=== PATIENT | female | born 1955 | race Caucasian/White ===

== ENCOUNTER 2016-07-09 11:55 | Emergency (ER) | payer OTHER ==
[~2016-07-09] VITALS: Ht 162.6 cm; Wt 126.9 kg
[2016-07-09] MEDS ORDERED: NAPROXEN500 MG PO (13:28)
[2016-07-09] MEDS ORDERED: FLEXERIL10 MG PO (13:28)
[2016-07-09 13:56] VITALS: BP 143/93
== END 2016-07-09 13:57 | disposition home or self-care (01) ==
LOC: EME 11:55 → EXP 11:55
DX: S20.221A Contusion of right back wall of thorax, initial encounter (principal); W01.198A Fall on same level from slipping, tripping and stumbling with subsequent striking against other object, initial encounter; Y92.233 Cafeteria of hospital as the place of occurrence of the external cause; Y99.0 Civilian activity done for income or pay
CPT/HCPCS: 71101; 72070; 99281; 99284; J1885

== ENCOUNTER → 2017-10-17 | Outpatient (CLI) | payer OTHER ==
[~2017-10-17] MED LIST: FLEXERIL10 MG PO; NAPROXEN500 MG PO
== END | disposition home or self-care (01) ==
LOC: RAD 09:27
DX: M16.11 Unilateral primary osteoarthritis, right hip (principal); M47.896 Other spondylosis, lumbar region
CPT/HCPCS: 73502

== ENCOUNTER → 2017-10-27 | Outpatient (CLI) | payer OTHER | END | disposition home or self-care (01) | LOC: RAD 11:11 | DX: M25.561 Pain in right knee (principal); Z96.651 Presence of right artificial knee joint | CPT/HCPCS: 73562; 73564 ==

== ENCOUNTER → 2017-11-17 | Outpatient (CLI) | payer OTHER | END | disposition home or self-care (01) | LOC: NUC 08:30 | DX: M19.012 Primary osteoarthritis, left shoulder (principal); M19.011 Primary osteoarthritis, right shoulder; M19.072 Primary osteoarthritis, left ankle and foot; M19.071 Primary osteoarthritis, right ankle and foot; M16.11 Unilateral primary osteoarthritis, right hip; M22.91 Unspecified disorder of patella, right knee; Z96.653 Presence of artificial knee joint, bilateral | CPT/HCPCS: 78315; A9503 ==

== ENCOUNTER → 2018-01-01 | Outpatient (CLI) | payer OTHER | END | disposition home or self-care (01) | LOC: NUC 06:07 | DX: T84.84XA Pain due to internal orthopedic prosthetic devices, implants and grafts, initial encounter (principal); Z96.653 Presence of artificial knee joint, bilateral | CPT/HCPCS: 78102; 78805; 78999; A9541; A9570; J1644 ==